=== PATIENT | female | born 1960 | race Hispanic/Latino ===

== ENCOUNTER 2024-04-22 10:33 | Emergency (ER) | payer SELFPAY ==
[2024-04-22 10:38] VITALS: BP 135/69
--- NOTE | 2024-04-22 10:44 | ED.GENMED ---
History of Present Illness
General
Chief Complaint: Headache
Source: patient and ambulance crew
Time Seen by Provider: 04/22/24 10:34
History of Present Illness
History of Present Illness:
63yoF with no significant past medical history presenting via EMS for evaluation after an episode of dizziness about 1 hour ago. Patient was at work today and she went to the kitchen to take a break. She was standing when she started to experience
dizziness which she describes as blurry vision. This was associated with a headache and diaphoresis. She sat down and a nurse checked her blood pressure which was high so EMS was called. Blood pressure was reportedly 190/100. Blood pressure
normalized during EMS transport. Patient is currently feeling better but continues to have a headache. She had a similar episode yesterday while at work. She denies any associated chest pain, shortness of breath, palpitations, nausea. She is not
currently on any medications.
Phy Exam
General Physical Exam
General Presentation: well appearing and no apparent distress
General age: appears stated age
General Skin: warm and dry
General Habitus: normal
General Mental: alert
General Hydration: appears well hydrated
ENT Exam
ENT Exam: normocephalic
Eye Exam
Eye Exam: PERRL
Cardiovascular Exam
Cardiovascular Exam: regular rate/rhythm
Pulmonary Exam
Pulmonary Exam: lungs clear, no respiratory distress, no rales, no crackles, no rhonchi and no wheezing
Neurological Exam
Neurological Exam: alert and no motor deficits
Chelsi Coma Scale
Eye Opening: Spontaneous
Verbal Response: Oriented
Motor Response: Obeys Commands
GCS Total Score: 15
Skin Exam
Skin Exam: normal color and warm/dry
Psychiatric Exam
Psychiatric Exam: normal mood/affect
Course
Orders/Labs/Results
Orders:
Orders
04/22/24 10:44
Cardiac Monitoring- Treatment ONCE
0.9% Sodium Chloride 500 ml [Nss] 500 ml IV BOLUS
04/22/24 10:46
CT Head W/o Iv Contrast Urgent
Comment:
Reason For Exam: Acute headache
04/22/24 11:04
Complete Blood Count/With Diff Urgent
Comprehensive Metabolic Panel Urgent
Magnesium Urgent
TSH Reflex To Free T4 Urgent
Troponin I Urgent
Abnormal Lab Results
04/22/24
11:04
RBC 4.10 L 10^6/uL
(4.20-5.40)
Hct 36.7 L %
(37.0-47.0)
MPV 10.5 H fL
(7.4-10.4)
04/22/24 11:04
04/22/24 11:04
Vital Signs
Initial and Last Documented VS:
Initial Vital Signs
Temp Pulse Resp BP Pulse Ox
97.9 F 79 16 135/69 100
04/22/24 10:38 04/22/24 10:38 04/22/24 10:38 04/22/24 10:38 04/22/24 10:38
Last Documented Vital Signs
Temp Pulse Resp BP Pulse Ox
97.9 F 60 18 108/75 99
04/22/24 10:38 04/22/24 11:45 04/22/24 11:45 04/22/24 11:33 04/22/24 11:45
MDM/Problems Addressed
Differential Diagnosis Includes:
63yoF here after an episode of dizziness at work. Associated with sweating and a headache. BP elevated at that time. Now resolved. No cardiac symptoms. She is afebrile and hemodynamically stable. BP 135/69 on arrival. She is well appearing in no
distress. Exam reassuring. 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 Differential diagnosis includes but is not limited to: dehydration, arrhythmia, electrolyte abnormality
Initial ED plan: Prehospital EKG reviewed which appears normal. Check cardiac labs, TSH, magnesium, EKG, and CT head. IV fluid bolus.
*Critical Care Note
Total Time (30-74mins, 75-104mins- exclusive of procedures): Not Applicable
Update Note
Update Note:
Labs unremarkable including normal electrolytes, TSH, and glucose. Troponin WNL. CT head is negative for acute intracranial abnormalities. Imaging shows possible right sphenoid sinusitis. Patient does report some ear pain and congestion which she
attributed to allergies. Patient asymptomatic on reassessment. BP 108/75. She is stable for discharge. She was started on a course of Augmentin. Advised f/u with PCP and ED return precautions discussed. She was discharged in stable condition.
ED Attending Note
-
Portions of this chart may have been created with voice recognition software.� Occasional wrong word or��sound alike� substitutions may have occurred due to the inherent limitations of voice recognition software.
Discharge Plan
Departure
Patient Disposition: Home (Routine Discharge)
Date of Disposition: 04/22/24
Time of Disposition: 12:15
Patient with high blood pressure during this ER visit?: No
Discharge Problem:
Episode of dizziness, Sinusitis
Instructions: Dizziness
Prescriptions:
New
amoxicillin-pot clavulanate 875-125 mg tablet
1 tab PO BID Qty: 14 0RF
Referrals:
[facility] [Provider Group]
[facility] [Outside]
NONE,* [Family Provider] -
Stand Alone Forms: Return to Work
Activity Restrictions/Additional Instructions:
Take antibiotics as prescribed. Drink plenty of fluids and rest.
Please follow-up with a family doctor. Return to the ER with any new or worsening symptoms.
Interventions
Interventions:
*Risk Screen - Suicide Last Done: 04/22/24 10:38
*General Assessment Last Done: 04/22/24 10:38
*Neglect/Abuse Screening Last Done: 04/22/24 10:38
ED- Fall Risk Assessment Last Done: 04/22/24 11:14
*ED COVID-19 Vaccine History Last Done: 04/22/24 11:03
*Nursing Disposition Last Done: 04/22/24 12:24
ED- Neurological Assessment Last Done: 04/22/24 11:09
Discharge Date and Time
Discharge Date/Time: 04/22/24 12:30
Print Language: ITALIAN
[2024-04-22] MEDS: NSS 500 IV (11:03)
[2024-04-22 11:14] LABS: % Basophils 0.3 % (0-2); % Eosinophils 3.2 % (0-6); % Immature Granulocytes 0.3 % (0-0.5); % Lymphocytes 43.5 % (20.5-51.1); % Monocytes 6.2 % (1.7-9.3); % Neutrophils 46.5 % (42.2-75.2); Absolute Eosinophils 0.2 10^3/uL (0-0.7); Absolute Lymphocytes 2.9 10^3/uL (1.2-3.4); Absolute Monocytes 0.4 10^3/uL (0.1-0.6); Absolute Neutrophils 3.1 10^3/uL (1.4-6.5); Hematocrit 36.7 % (37.0-47.0); Hemoglobin 12.4 g/dL (12.0-16.0); Mean Corp Hgb Conc. 33.8 g/dL (33.0-37.0); Mean Corpuscular Hgb 30.2 pg (27.0-31.0); Mean Corpuscular Volume 89.5 fL (81.0-99.0); Mean Platelet Volume 10.5 fL (7.4-10.4); Nucleated Red Blood Cells % 0 %; Platelet Count 172 10^3/uL (130-400); White Blood Cell Count 6.7 10^3/uL (4.8-10.8)
[2024-04-22 11:28] LABS: ALT (SGPT) 23 U/L (0-35); AST (SGOT) 25 U/L (14-36); Albumin 4.4 g/dl (3.5-5.0); Alkaline Phosphatase 52 U/L (38-126); Blood Urea Nitrogen 12 mg/dl (7-17); Calcium 9.9 mg/dl (8.4-10.2); Carbon Dioxide 25 mmol/L (22-30); Chloride 106 mmol/L (98-107); Glucose 95 mg/dl (70-99); Potassium 4.1 mmol/L (3.5-5.1); Sodium 142 mmol/L (135-145); Total Bilirubin 0.4 mg/dl (0.2-1.3); eGFR > 60.00
[2024-04-22 11:33] VITALS: BP 108/75
[2024-04-22 11:40] LABS: Troponin I < 0.012 ng/ml
[2024-04-22 11:58] LABS: TSH Reflex To Free T4 1.36 uIU/ml (0.47-4.68)
== END 2024-04-22 12:30 | disposition home or self-care (01) ==
LOC: EMR 10:33
PROVIDERS: Physician Assistant; EMERGENCY PHYSICIAN Emergency Medicine
DX: R42 Dizziness and giddiness (principal); J32.9 Chronic sinusitis, unspecified
CPT/HCPCS: 99284; 96360; 70450; 80053; 83735; 84443; 84484; 85025